=== PATIENT | male | born 1985 | race Caucasian/White ===

== ENCOUNTER → 2016-05-24 | Outpatient (CLI) | payer BC | END | disposition home or self-care (01) | LOC: C.PATHSPEC 17:47 | PROVIDERS: ATTEND Urology | DX: Z30.2 Encounter for sterilization (principal) ==

== ENCOUNTER → 2016-12-18 | Outpatient (CLI) | payer BC ==
--- NOTE | 2016-12-18 14:11 | DIAGNOSTIC IMAGING REPORT ---
TWO VIEW CHEST CLINICAL HISTORY: Dyspnea of several months duration. FINDINGS: PA and lateral chest radiographs are compared to study dated 11/04/2014. The cardiomediastinal silhouette is unremarkable. A right paratracheal density is noted. The lungs and pleural spaces are clear. There is no pneumothorax. The bony thorax appears intact. IMPRESSION: 1. No active disease in the chest. 2. A lobulated right paratracheal density likely represents the thyroid gland versus vascular structures and is likely similar to previous. CT scan could be considered for further interrogation of clinically warranted. Electronically signed by: Johnie Austin M.D. 12/18/2016 2:10 PM Dictated Date/Time: 12/18/2016 2:06 PM
--- NOTE | 2016-12-24 07:45 | PULMONARY FUNCTION TEST ---
CLINICAL DATA: The patient is a 31-year-old male with a height of 69 inches and a weight of 220 pounds, referred by WILMER Gorman, for evaluation of dyspnea. Spirometry pre and post bronchodilator, lung volumes, diffusing capacity were performed. FINDINGS: Pre-bronchodilator spirometry is within normal limits. FVC was 101% of predicted. FEV1 was 100% of predicted. [id number] was 105% of predicted. There was minimal change after inhaled bronchodilator. FVC remained stable. FEV1 improved 3% and [id number] improved 11%. Lung volumes demonstrated a reduction in expiratory reserve volume and residual volume, question secondary to the patient's weight. Diffusion capacity was normal at 97% of predicted. IMPRESSION: Normal spirometry with no significant improvement after inhaled bronchodilator. Normal diffusing capacity. Mild reduction in several lung volumes, question secondary to the patient's weight.
== END | disposition home or self-care (01) ==
LOC: C.RC 13:22
PROVIDERS: ATTEND Nurse Practitioner
DX: R06.00 Dyspnea, unspecified (principal)

== ENCOUNTER 2017-01-31 16:52 | Emergency (ER) | payer BC ==
[~2017-01-31] VITALS: Ht 175.3 cm; Wt 102.8 kg
[2017-01-31 16:54] VITALS: TEMP 37.1; Ht 175.3 cm; Wt 102.8 kg
[2017-01-31] MEDS ORDERED: SODIUM CHLORIDE 0.9% 1000ML 1,000 ML IV STA (17:12)
--- NOTE | 2017-01-31 17:36 | DIAGNOSTIC IMAGING REPORT ---
CHEST ONE VIEW PORTABLE CLINICAL HISTORY: palpitations COMPARISON STUDY: 12/18/2016 FINDINGS: The heart is at the upper limits of normal in size. There is no failure. There is no focal pulmonary consolidation. There are no pleural effusions.[ IMPRESSION: No active disease in the chest. Electronically signed by: Tobin Perez M.D. 01/31/2017 5:35 PM Dictated Date/Time: 01/31/2017 5:34 PM
[2017-01-31 17:39] LABS: BASO % 0.3 %; BASO ABS # 0.02 K/uL (0-0.2); COMPLETE YES; EOS % 1.3 %; HEMATOCRIT 40.6 % (42-52); IG% 0.6 %; LYMPH % 33.5 %; LYMPH ABS # 2.37 K/uL (1.2-3.4); MEAN CELL VOLUME 84.6 fL (80-100); MEAN CORPUSCULAR HEMOGLOBIN 30.8 pg (25-34); MEAN CORPUSCULAR HGB CONC 36.5 g/dl (32-36); MONO % 11.4 %; NEUT % 52.9 %; PLATELET COUNT 187 K/uL (130-400); WHITE BLOOD COUNT 7.08 K/uL (4.8-10.8)
[2017-01-31 17:53] LABS: BLOOD UREA NITROGEN 10 mg/dl (7-18); BUN/CREATININE RATIO 9.1 (10-20); CALCIUM 9.7 mg/dl (8.5-10.1); CARBON DIOXIDE 26 mmol/L (21-32); CHLORIDE 108 mmol/L (98-107); GLUCOSE 87 mg/dl (70-99); MAGNESIUM 2.4 mg/dl (1.8-2.4); SODIUM 139 mmol/L (136-145)
--- NOTE | 2017-01-31 18:42 | EMERGENCY ROOM VISIT NOTE ---
History First contact with patient: 16:59 Chief Complaint: CHEST PAIN Stated Complaint: HEART PALPITATIONS,CHEST TIGHTNESS,LIGHT HEADED History of Present Illness The patient is a 31 year old male who presents to the Emergency Room with complaints of heart palpitations. The patient states that for the past 4 days, he has had intermittent palpitations. He states they occur throughout the day and last for a few seconds at a time. Today, he states that he was at work and initially had no symptoms, but then developed palpitations again. He describes the feeling as a fluttering in his upper chest. He denies any associated chest pain or shortness of breath. He denies any cardiac history or history of arrhythmias. He denies any new medications. He denies any drug use. He does state that he had diarrhea a few days ago he feels he could be slightly dehydrated. Review of Systems A complete 10 point review of systems was reviewed with the patient with pertinent positives and negatives as per history of present illness. All else were negative. Social History Smoking Status: Former Smoker Alcohol Use: occasionally Marital Status: Housing Status: lives with family Occupation Status: employed Current/Historical Medications No Active Prescriptions or Reported Meds Physical Exam Vital Signs Date Time Temp Pulse Resp B/P (MAP) Pulse Ox O2 Delivery O2 Flow Rate FiO2 01/31/17 18:45 85 18 134/85 99 Room Air 01/31/17 17:25 91 01/31/17 16:54 37.1 96 18 145/77 97 Room Air Physical Exam VITALS: Vitals are noted on the nurse's note and reviewed by myself. Vital signs stable. GENERAL: This is a 31-year-old male, in no acute distress, nondiaphoretic, well- developed well-nourished. SKIN: Capillary reflex less than 2 seconds. HEENT: Normocephalic. PERRLA. EOMI. Mucous membranes moist. Neck is supple without nuchal rigidity. HEART: Regular rate and rhythm without murmurs gallops or rubs. LUNGS: Clear to auscultation bilaterally without wheezes, rales or rhonchi. No retractions or accessory muscle use. NEURO: Patient was alert and oriented to person place and time. Medical Decision & Procedures ER Provider Diagnostic Interpretation: CHEST ONE VIEW PORTABLE CLINICAL HISTORY: palpitations COMPARISON STUDY: 12/18/2016 FINDINGS: The heart is at the upper limits of normal in size. There is no failure. There is no focal pulmonary consolidation. There are no pleural effusions.[ IMPRESSION: No active disease in the chest. Laboratory Results 01/31/17 17:20 Red Blood Count 4.80, Mean Corpuscular Volume 84.6, Mean Corpuscular Hemoglobin 30.8, Mean Corpuscular Hemoglobin Concent 36.5, Mean Platelet Volume 10.0, Neutrophils (%) (Auto) 52.9, Lymphocytes (%) (Auto) 33.5, Monocytes (%) (Auto) 11.4, Eosinophils (%) (Auto) 1.3, Basophils (%) (Auto) 0.3, Neutrophils # (Auto ) 3.75, Lymphocytes # (Auto) 2.37, Monocytes # (Auto) 0.81, Eosinophils # (Auto ) 0.09, Basophils # (Auto) 0.02 01/31/17 17:20 Test 01/31/17 17:20 White Blood Count 7.08 K/uL (4.8-10.8) Red Blood Count 4.80 M/uL (4.7-6.1) Hemoglobin 14.8 g/dL (14.0-18.0) Hematocrit 40.6 % (42-52) Mean Corpuscular Volume 84.6 fL (80-100) Mean Corpuscular Hemoglobin 30.8 pg (25-34) Mean Corpuscular Hemoglobin Concent 36.5 g/dl (32-36) Platelet Count 187 K/uL (130-400) Mean Platelet Volume 10.0 fL (7.4-10.4) Neutrophils (%) (Auto) 52.9 % Lymphocytes (%) (Auto) 33.5 % Monocytes (%) (Auto) 11.4 % Eosinophils (%) (Auto) 1.3 % Basophils (%) (Auto) 0.3 % Neutrophils # (Auto) 3.75 K/uL (1.4-6.5) Lymphocytes # (Auto) 2.37 K/uL (1.2-3.4) Monocytes # (Auto) 0.81 K/uL (0.11-0.59) Eosinophils # (Auto) 0.09 K/uL (0-0.5) Basophils # (Auto) 0.02 K/uL (0-0.2) RDW Standard Deviation 38.8 fL (36.4-46.3) RDW Coefficient of Variation 12.5 % (11.5-14.5) Immature Granulocyte % (Auto) 0.6 % Immature Granulocyte # (Auto) 0.04 K/uL (0.00-0.02) Anion Gap 5.0 mmol/L (3-11) Est Creatinine Clear Calc Drug Dose 112.9 ml/min Estimated GFR () 101.7 Estimated GFR (Non- 87.7 BUN/Creatinine Ratio 9.1 (10-20) Calcium Level 9.7 mg/dl (8.5-10.1) Magnesium Level 2.4 mg/dl (1.8-2.4) Troponin I < 0.015 ng/ml (0-0.045) Thyroid Stimulating Hormone (TSH) 1.370 uIu/ml (0.300-4.500) Medications Administered Medications (Trade) Dose Ordered Sig/Tanya Route Start Time Stop Time Status Last Admin Dose Admin Sodium Chloride 1,000 ml @ 999 mls/hr Q1H1M STAT IV 01/31/17 17:12 01/31/17 18:12 DC 01/31/17 17:53 999 MLS/HR ECG Indication: palpitations Rate (beats per minute): 90 Rhythm: normal sinus Findings: no acute ischemic change, no ectopy Change: no significant change Medical Decision Differential diagnosis includes arrhythmia, thyroid abnormality, electrolyte abnormality, drug use, anemia, anxiety, dehydration, among others. The patient is a 31-year-old male who presents today complaining of intermittent palpitations for the past several days. Labs revealed no leukocytosis, anemia or concerning electrolyte abnormalities. TSH was within normal limits. EKG was unremarkable. The patient was asymptomatic at the time of my evaluation. He did not have significant symptoms throughout his stay. He was placed on the cardiac/vascular sonographer with no events noted. The patient may need further workup including Holter monitor or echocardiogram, but I do feel this can be performed as an outpatient. He was reassured and referred back to his primary care provider for further evaluation. He was encouraged to return here if he develops worsening or new/concerning symptoms. He was verbal to this treatment plan. Based on the patient's presentation and work up, I feel the patient is stable for outpatient treatment. The patient was educated to return to the emergency department for any worsening of their current condition or new/concerning symptoms. He will follow up with his PCP. Medication Reconcilliation Current Medication List: was personally reviewed by me Blood Pressure Screening Patient's blood pressure: Elevated blood pressure Blood pressure disposition: Elevated BP felt to be situational Impression Primary Impression: Palpitations Departure Information Dispostion Home / Self-Care Condition GOOD Prescriptions No Active Prescriptions or Reported Meds Referrals Agusto Carmen MD (PCP) Patient Instructions My [facility] Additional Instructions You have been treated in the Emergency Department for your palpitations. Laboratory results and Imaging Studies have ruled out any cardiac or pulmonary cause of your chest pain. Rest and stay well hydrated. You should schedule a follow-up appointment with your Primary Care Provider in 2 -3 days for further evaluation from today's Emergency Department visit. You may need more testing including a Holter monitor to find the source of your palpitations. Return to the Emergency Department if your current symptoms worsen despite treatment course outlined above, or if you develop any of the following symptoms : worsening chest pain, associated jaw/arm pain, nausea, dizziness, shortness of breath, bloody cough, or fainting.
[2017-01-31 18:45] VITALS: BP 134/85; PULSE 85; O2SAT 99
== END 2017-01-31 19:07 | disposition home or self-care (01) ==
LOC: C.EDB 16:54 → C.EDA 19:07
DX: R00.2 Palpitations (principal); R19.7 Diarrhea, unspecified; Z87.891 Personal history of nicotine dependence

== ENCOUNTER → 2017-03-14 | Outpatient (CLI) | payer BC ==
--- NOTE | 2017-03-14 16:16 | DIAGNOSTIC IMAGING REPORT ---
THYROID ULTRASONOGRAPHY CLINICAL HISTORY: Palpable thyroid nodule COMPARISON STUDY: No previous studies for comparison. FINDINGS: The right lobe of thyroid measures 18 x 51 x 14 mm. The left lobe of thyroid measures 50 x 37 x 15 mm. Both lobes are of normal echogenicity. No thyroid nodules are visualized. IMPRESSION: Normal thyroid ultrasonography. Electronically signed by: Tobin Perez M.D. 03/14/2017 4:14 PM Dictated Date/Time: 03/14/2017 4:13 PM
== END | disposition home or self-care (01) ==
LOC: C.ULTR 15:28
PROVIDERS: ATTEND Physician Assistant
DX: M54.2 Cervicalgia (principal); R22.1 Localized swelling, mass and lump, neck

== ENCOUNTER 2017-08-02 08:09 | Emergency (ER) | payer BC ==
[~2017-08-02] VITALS: Ht 175.3 cm; Wt 92.4 kg
[2017-08-02 08:13] VITALS: O2SAT 98; Ht 175.3 cm; Wt 92.4 kg
[2017-08-02] MEDS ORDERED: ONDANSETRON INJ 2 MG/ML 2 ML VIAL IV STA (08:28)
[2017-08-02] MEDS ORDERED: ACETAMINOPHEN 500 MG TAB PO STA (08:28)
[2017-08-02] MEDS ORDERED: SODIUM CHLORIDE 0.9% 1000ML 1,000 ML IV STA (08:28)
[2017-08-02] MEDS ORDERED: GI COCKTAIL PO STA (08:28)
[2017-08-02] MEDS ORDERED: FAMOTIDINE 20 MG TAB PO ONE (08:30)
[2017-08-02] MEDS ORDERED: MULT-506 PO (08:31)
[2017-08-02 08:37] LABS: BASO % 0.1 %; BASO ABS # 0.01 K/uL (0-0.2); EOS % 1.6 %; EOS ABS # 0.12 K/uL (0-0.5); HEMATOCRIT 44.7 % (42-52); HEMOGLOBIN 16.5 g/dL (14.0-18.0); IG# 0.05 K/uL (0.00-0.02); LYMPH % 30.4 %; LYMPH ABS # 2.33 K/uL (1.2-3.4); MEAN CORPUSCULAR HEMOGLOBIN 31.7 pg (25-34); MEAN CORPUSCULAR HGB CONC 36.9 g/dl (32-36); MEAN PLATELET VOLUME 9.7 fL (7.4-10.4); MONO % 9.3 %; MONO ABS # 0.71 K/uL (0.11-0.59); NEUT % 57.9 %; NEUT ABS # 4.44 K/uL (1.4-6.5); PLATELET COUNT 180 K/uL (130-400); RED CELL DISTRIBUTION WIDTH CV 12.7 % (11.5-14.5); RED CELL DISTRIBUTION WIDTH SD 40.1 fL (36.4-46.3); WHITE BLOOD COUNT 7.66 K/uL (4.8-10.8)
[2017-08-02] MEDS ORDERED: ALUMINUM/MAGNESIUM SUSP 30 ML UDC ONE (08:37)
[2017-08-02] MEDS ORDERED: LIDOCAINE HCL 2% VISC SOLN 20 ML UDC ONE (08:38)
--- NOTE | 2017-08-02 08:43 | DIAGNOSTIC IMAGING REPORT ---
CHEST ONE VIEW PORTABLE CLINICAL HISTORY: 31 years-old Male presenting with CHEST PAIN. TECHNIQUE: Portable upright AP view of the chest was obtained. COMPARISON: 01/31/2017. FINDINGS: Cardiomediastinal silhouette normal. Lungs and pleural spaces clear. Osseous structures normal. Upper abdomen normal. IMPRESSION: 1. No acute cardiopulmonary disease. Electronically signed by: Gee Bearden M.D. 08/02/2017 8:41 AM Dictated Date/Time: 08/02/2017 8:41 AM
[2017-08-02 08:48] LABS: PTT PATIENT 28.7 SECONDS (21.0-31.0)
[2017-08-02 08:56] LABS: ALBUMIN 4.4 gm/dl (3.4-5.0); ALT/SGPT 57 U/L (12-78); BLOOD UREA NITROGEN 10 mg/dl (7-18); CALCIUM 9.3 mg/dl (8.5-10.1); CARBON DIOXIDE 26 mmol/L (21-32); CREATININE 1.01 mg/dl (0.60-1.40); GLUCOSE 96 mg/dl (70-99); LIPASE 112 U/L (73-393); SODIUM 137 mmol/L (136-145)
[2017-08-02 09:01] LABS: ALKALINE PHOSPHATASE 102 U/L (45-117); AST/SGOT 25 U/L (15-37); TOTAL PROTEIN 8.3 gm/dl (6.4-8.2)
--- NOTE | 2017-08-02 09:16 | EMERGENCY ROOM VISIT NOTE ---
History Report prepared by Neilibviral: Monty Whittington Under the Supervision of: Dr. Pavel Hager M.D. First contact with patient: 08:11 Chief Complaint: CHEST PAIN Stated Complaint: CHEST PAIN NUMBNESS IN EXTREMITIES X 3 TO 4 DAYS History of Present Illness The patient is a 31 year old white male with a past medical history of previous hernia surgery who presents to the ED with a cc of intermittent chest pain beginning a few days ago. Describes pain as "burning". Pain is present most of the time. Positive lightheadedness, shortness of breath, and nausea. Pain worsens throughout the day. Patient has taken Ibuprofen for his pain, but only rest improves his pain. His pain is not significantly worsened with exertion. Negative leg swelling, vomiting, cough, fevers, or chills. Patient had flu shot this year. Urinating and defecating normally. No history of blood clots. Patient notes that his grandfather recently 2-3 days ago and that has been stressful. Source of History: patient Onset: A few days ago Position: chest Quality: burning Timing: intermittent Modifying Factors (Worsening): other (throughout day) Modifying Factors (Relieving): rest Associated Symptoms: + SOB, + nausea, No fevers, No chills, No cough, No vomiting Note: Negative: leg swelling. Positive: lightheadedness. Review of Systems See HPI for pertinent positives and negatives. A total of ten systems were reviewed and were otherwise negative. Past Medical & Surgical Medical Problems: (1) No Known Active Medical Problems (2) Non-cardiac chest pain (3) Palpitations Family History No pertinent family history stated. Social History Smoking Status: Former Smoker Alcohol Use: occasionally Marital Status: Housing Status: lives with family Occupation Status: employed Current/Historical Medications Scheduled Multivitamin (Multivitamin), 1 TAB PO DAILY Allergies Coded Allergies: No Known Allergies (Unverified , 08/02/17) Physical Exam Vital Signs Date Time Temp Pulse Resp B/P (MAP) Pulse Ox O2 Delivery O2 Flow Rate FiO2 08/02/17 09:32 36.9 92 18 126/74 99 Room Air 08/02/17 08:23 87 08/02/17 08:13 98 Room Air 08/02/17 08:13 37.4 101 18 156/100 98 Room Air Physical Exam GENERAL: Awake, alert, well-appearing, NAD. Wearing glasses. HENT: Normocephalic, atraumatic. EYES: Normal conjunctiva. Sclera non-icteric. NECK: Supple. No nuchal rigidity. FROM. RESPIRATORY: CTAB, no rhonchi, wheezing, crackles CARDIAC: Tachycardic rate with a regular rhythm, no MRG ABDOMEN: Soft, NTND, BS+ MSK: No chest wall TTP, no LE edema NEURO: GCS 15, CN 2-12 intact, moves all 4s on command SKIN: No rash or jaundice noted. Medical Decision & Procedures ER Provider Diagnostic Interpretation: Radiology results as stated below per my review and radiologist interpretation: CHEST ONE VIEW PORTABLE FINDINGS: Cardiomediastinal silhouette normal. Lungs and pleural spaces clear. Osseous structures normal. Upper abdomen normal. IMPRESSION: 1. No acute cardiopulmonary disease. Electronically signed by: Gee Bearden M.D. 08/02/2017 8:41 AM Laboratory Results 08/02/17 08:20 Red Blood Count 5.20, Mean Corpuscular Volume 86.0, Mean Corpuscular Hemoglobin 31.7, Mean Corpuscular Hemoglobin Concent 36.9, Mean Platelet Volume 9.7, Neutrophils (%) (Auto) 57.9, Lymphocytes (%) (Auto) 30.4, Monocytes (%) (Auto) 9.3, Eosinophils (%) (Auto) 1.6, Basophils (%) (Auto) 0.1, Neutrophils # (Auto) 4.44, Lymphocytes # (Auto) 2.33, Monocytes # (Auto) 0.71, Eosinophils # (Auto) 0.12, Basophils # (Auto) 0.01 08/02/17 08:20 Test 08/02/17 08:20 White Blood Count 7.66 K/uL (4.8-10.8) Red Blood Count 5.20 M/uL (4.7-6.1) Hemoglobin 16.5 g/dL (14.0-18.0) Hematocrit 44.7 % (42-52) Mean Corpuscular Volume 86.0 fL (80-100) Mean Corpuscular Hemoglobin 31.7 pg (25-34) Mean Corpuscular Hemoglobin Concent 36.9 g/dl (32-36) Platelet Count 180 K/uL (130-400) Mean Platelet Volume 9.7 fL (7.4-10.4) Neutrophils (%) (Auto) 57.9 % Lymphocytes (%) (Auto) 30.4 % Monocytes (%) (Auto) 9.3 % Eosinophils (%) (Auto) 1.6 % Basophils (%) (Auto) 0.1 % Neutrophils # (Auto) 4.44 K/uL (1.4-6.5) Lymphocytes # (Auto) 2.33 K/uL (1.2-3.4) Monocytes # (Auto) 0.71 K/uL (0.11-0.59) Eosinophils # (Auto) 0.12 K/uL (0-0.5) Basophils # (Auto) 0.01 K/uL (0-0.2) RDW Standard Deviation 40.1 fL (36.4-46.3) RDW Coefficient of Variation 12.7 % (11.5-14.5) Immature Granulocyte % (Auto) 0.7 % Immature Granulocyte # (Auto) 0.05 K/uL (0.00-0.02) Prothrombin Time 10.6 SECONDS (9.0-12.0) Prothromb Time International Ratio 1.0 (0.9-1.1) Activated Partial Thromboplast Time 28.7 SECONDS (21.0-31.0) Partial Thromboplastin Ratio 1.1 Anion Gap 7.0 mmol/L (3-11) Est Creatinine Clear Calc Drug Dose 116.8 ml/min Estimated GFR () 112.7 Estimated GFR (Non- 97.3 BUN/Creatinine Ratio 10.3 (10-20) Calcium Level 9.3 mg/dl (8.5-10.1) Total Bilirubin 0.8 mg/dl (0.2-1) Direct Bilirubin 0.2 mg/dl (0-0.2) Aspartate Amino Transf (AST/SGOT) 25 U/L (15-37) Alanine Aminotransferase (ALT/SGPT) 57 U/L (12-78) Alkaline Phosphatase 102 U/L (45-117) Troponin I < 0.015 ng/ml (0-0.045) Pro-B-Type Natriuretic Peptide < 5 pg/ml (0-450) Total Protein 8.3 gm/dl (6.4-8.2) Albumin 4.4 gm/dl (3.4-5.0) Lipase 112 U/L (73-393) Laboratory results reviewed by me Medications Administered Medications (Trade) Dose Ordered Sig/Tanya Route Start Time Stop Time Status Last Admin Dose Admin Sodium Chloride 1,000 ml @ 999 mls/hr Q1H1M STAT IV 08/02/17 08:28 08/02/17 09:28 DC 08/02/17 08:33 999 MLS/HR Acetaminophen (Tylenol Tab) 1,000 mg NOW STAT PO 08/02/17 08:28 08/02/17 08:31 DC 08/02/17 08:41 1,000 MG Miscellaneous Medication (Gi Cocktail) 24 ml ONE STAT PO 08/02/17 08:28 08/02/17 08:31 DC 08/02/17 08:42 24 ML Famotidine (Pepcid Tab) 20 mg NOW ONCE PO 08/02/17 08:30 08/02/17 08:31 DC 08/02/17 08:41 20 MG Ondansetron HCl (Zofran Inj) 4 mg NOW STAT IV 08/02/17 08:28 08/02/17 08:31 DC 08/02/17 08:41 4 MG Al Hydroxide/Mg Hydroxide (Maalox Susp) 30 ml STK-MED ONCE .ROUTE 08/02/17 08:37 08/02/17 08:38 DC 08/02/17 08:41 30 ML Lidocaine HCl (Viscous Lidocaine 2% Soln) 20 ml STK-MED ONCE .ROUTE 08/02/17 08:38 08/02/17 08:39 DC 08/02/17 08:41 20 ML ECG Per My Interpretation Indication: chest pain Rate (beats per minute): 109 Rhythm: sinus tachycardia Findings: other (Normal intervals. Normal axis. No STS changes or TWI. No evidence of right heart strain. ) ED Course 0817: The patient was evaluated in room A2. A complete history and physical exam was performed. 0934: I reevaluated the patient. Discussed results and discharge instructions: he verbalized understanding and agreement. The patient is ready for discharge. Medical Decision The patient is a 31 year old white male with a past medical history of previous hernia surgery who presents to the ED with a cc of intermittent chest pain beginning a few days ago. Differential diagnosis: Etiologies such as cardiac ischemia, aortic dissection, pulmonary embolism, pneumonia, pneumothorax, musculoskeletal, infections, pericarditis, myocarditis , esophageal rupture, gastrointestinal, as well as others were entertained. Prior records were reviewed. The patient was seen last year for some chest discomfort. Patient was seen and evaluated the bedside. Patient does complain of some intermittent chest pain. Patient states that it is left-sided and burning in nature. Patient states constant. Patient denies any exertional symptoms. Patient does not have any family history of early cardiac disease. Patient does use alcohol occasionally but denies any tobacco or substance abuse. Patient denies any infectious symptoms. Of note the patient's grandfather did pass away 2-3 days ago. Patient states that also thinking that his chest pain may make it worse as well. Patient does not have any prior history of psychiatric disorders or anxiety or depression. Patient is not taking anything with the exception of ibuprofen which has not helped his discomfort. Patient has complained of nausea but without vomiting. Patient did have blood work completed, EKG, troponin, chest x-ray. Patient's blood work fairly unremarkable. Patient's EKG did show sinus tach but no ischemia and the patient does not show any evidence of right heart strain. Patient would be PE RC of 1 given the tachycardia however this resolved with pain control. Believe PE less likely. ACS also less likely given the patient has a heart score less than 4. Upon reassessment patient was feeling improved. Patient's chest x-ray was clear. This may be possible gastritis given the burning nature of his chest discomfort. He has also had a recent stress of his grandfather recently passing away. Patient was deemed suitable for outpatient follow-up treatment at this time. Patient was given strict follow-up, discharge , and return precautions. All questions were answered. Patient was deemed suitable for outpatient follow-up at this time. Patient agreed with the plan of care and was safely discharged home. Medication Reconcilliation Current Medication List: was personally reviewed by me Blood Pressure Screening Patient's blood pressure: Normal blood pressure Blood pressure disposition: Did not require urgent referral Impression Primary Impression: Chest pain Scribe Attestation The scribe's documentation has been prepared under my direction and personally reviewed by me in its entirety. I confirm that the note above accurately reflects all work, treatment, procedures, and medical decision making performed by me. Departure Information Dispostion Home / Self-Care Referrals Agusto Carmen MD (PCP) Patient Instructions Chest Pain - [facility], ED Gastritis, My [facility] Additional Instructions Please return to the emergency department if you have worsening or recurrent symptoms not amenable to at-home treatment. Please call for a follow-up appointment with her primary care physician. Please take your medications as prescribed. If you have other concerns and/or complaints please feel free to also call your primary care physician's office or return the ED for further evaluation, management, and treatment. You may take 600 mg Ibuprofen every 6 hours as needed for pain with food for no more than 2 consecutive days. You may take tylenol 1000 mg every 6 hours as needed for pain. You may take motrin and tylenol separately or at the same time. Please consider a Pepcid or Zantac to help with any GI upset. Consider smaller meals and avoiding things like spicy or citrus foods. You have been examined and treated today on an emergency basis only. This is not a substitute for, or an effort to provide, complete comprehensive medical care. It is impossible to recognize and treat all injuries or illnesses in a single emergency department visit. It is therefore important that you follow up closely with [facility], your PCP, and/or your specialist(s). Call as soon as possible for an appointment. Thank you for your time and consideration. I look forward to speaking with you again soon. Please don't hesitate to call us if you have any questions. Problem Qualifiers Primary Impression: Chest pain Chest pain type: unspecified Qualified Codes: R07.9 - Chest pain, unspecified
[2017-08-02 09:32] VITALS: BP 126/74; PULSE 92; TEMP 36.9; O2SAT 99
== END 2017-08-02 09:52 | disposition home or self-care (01) ==
LOC: C.EDA 08:12
DX: R07.9 Chest pain, unspecified (principal); Z87.891 Personal history of nicotine dependence

== ENCOUNTER 2017-09-08 11:08 | Emergency (ER) | payer BC ==
[~2017-09-08] VITALS: Ht 177.8 cm; Wt 100.6 kg
[~2017-09-08 11:08] MED LIST: MULT-506 PO
[2017-09-08 11:13] VITALS: TEMP 37.2; Ht 177.8 cm; Wt 100.6 kg
[2017-09-08] MEDS ORDERED: CEPHALEXIN MONOHYDRATE 250 MG CAP PO STA (11:41)
[2017-09-08] MEDS ORDERED: SULFAMETHOXAZOLE/TRIMETHOPRIM DS 800/160MG TAB PO STA (11:41)
[2017-09-08] MEDS ORDERED: SULF800T23 PO (11:43)
[2017-09-08] MEDS ORDERED: CEPH500C PO (11:43)
--- NOTE | 2017-09-08 11:44 | EMERGENCY ROOM VISIT NOTE ---
ED Visit Note First contact with patient: 11:28 CHIEF COMPLAINT: Infection of the skin of the left breast HISTORY OF PRESENT ILLNESS: This 31-year-old male patient presents to the emergency department, ambulatory, less than 24 hours after they noticed a hard, red, tender area just superior to the left nipple. It is slowly getting larger , more painful and tender. No fever, chills, or loss of appetite. There has been no drainage from the area. There was no injury to the area preceding the infection. There have been no open wounds in that area. They rate the pain as throbbing and 5/10. Tetanus shot is up to date. They have tried nothing. The patient is not diabetic. The patient has no history of subcutaneous abscesses. The patient denies fever or systemic symptoms. REVIEW OF SYSTEMS: A 10 system review of systems was performed with positives and pertinent negatives listed in the history of present illness. All other systems were reviewed and are negative. ALLERGIES: None MEDICATIONS: None PMH: None SOCIAL HISTORY: The patient lives locally with family. He denies drug, alcohol , tobacco use. PHYSICAL EXAM: Vital Signs: Reviewed Nurse's notes, vital signs stable. GENERAL : This is a 31-year-old male, no acute distress, non toxic in appearance, well- developed well-nourished. SKIN: There is an erythematous indurated area just superior to the left nipple which measures about .25 cm in diameter. It is fluctuant but there is no pointing or drainage. There is a zone of inflammation around it but no lymphangitis. Capillary refill less than 2 seconds. MUSCULOSKELETAL: There is no limitation of the range of motion of the upper extremities. EMERGENCY DEPARTMENT COURSE: I examined the patient. I discussed options with the patient including I&D versus antibiotic treatment initially. The patient would like to start on antibiotics with close follow-up by his PCP this week. I do feel that this is reasonable given the small size of the lesion and no significant redness or drainage at this time. The patient was educated on using warm, moist compresses and proper use of antibiotics. Discharge instructions reviewed. The patient was discharged home in stable condition. I attest that I have personally reviewed the patient's current medication list. Patient was found to have normal blood pressure on screening and does not require follow-up. Differential diagnosis includes cellulitis, abscess, DVT, superficial thrombus, septic joint, necrotizing fasciitis, burn, dermatitis, impetigo, erythema multiforme, bite, osteomyelitis, Hair-Agustín Syndrome, gangrene, malignancy , and others DIAGNOSIS: Abscess of the skin of the left breast The chart was completed utilizing lettrs Speech voice recognition software. Grammatical errors, random word insertions, pronoun errors, and incomplete sentences are an occasional consequence of this system due to software limitations, ambient noise, and hardware issues. Any formal questions or concerns about the content, text, or information contained within the body of this dictation should be directly addressed to the provider for clarification. Problem List Medical Problems: (1) Non-cardiac chest pain Status: Resolved (2) Palpitations Status: Resolved Current/Historical Medications Scheduled Cephalexin Monohydrate (Keflex), 500 MG PO QID Multivitamin (Multivitamin), 1 TAB PO DAILY Sulfa/Trimethoprim (Bactrim Ds 800MG/160MG), 1 TAB PO BID Allergies Coded Allergies: No Known Allergies (Unverified , 09/08/17) Vital Signs Date Time Temp Pulse Resp B/P (MAP) Pulse Ox O2 Delivery O2 Flow Rate FiO2 09/08/17 11:52 99 16 142/91 97 Room Air 09/08/17 11:13 37.2 99 18 144/85 97 Room Air Medications Administered Medications (Trade) Dose Ordered Sig/Tanya Route Start Time Stop Time Status Last Admin Dose Admin Cephalexin Monohydrate (Keflex Cap) 500 mg NOW STAT PO 09/08/17 11:41 09/08/17 11:42 DC 09/08/17 11:51 500 MG Trimethoprim/ Sulfamethoxazole (Septra Ds 800/ 160MG Tab) 1 tab NOW STAT PO 09/08/17 11:41 09/08/17 11:42 DC 09/08/17 11:50 1 TAB Departure Information Impression Primary Impression: Abscess of left breast Dispostion Home / Self-Care Condition GOOD Prescriptions Sulfa/Trimethoprim (Bactrim Ds 800MG/160MG) Tab 1 TAB PO BID for 10 Days, #20 TAB Prov: Ximena García PA-C 09/08/17 Cephalexin Monohydrate (Keflex) 500 Mg Cap 500 MG PO QID for 10 Days, #40 CAP Prov: Ximena García PA-C 09/08/17 Referrals Agusto Carmen MD (PCP) Forms WORK / SCHOOL INSTRUCTIONS, HOME CARE DOCUMENTATION FORM, IMPORTANT VISIT INFORMATION Patient Instructions ED Infec Skin Cellulitis, My [facility] Additional Instructions He was seen in the emergency department today for a small abscess with associated skin cellulitis just above the left nipple on the breasts. As discussed, this abscess is very small, and may improve with antibiotics. It is imperative that you follow-up with your PCP in 2-3 days for reevaluation and possible drainage if necessary. Cephalexin(Keflex) 500mg: Take one pill four times daily for 10 days for your skin infection. All antibiotics can cause diarrhea. If this occurs and you feel worse or it does not resolve in 1-2 days follow up with your doctor or return to the Emergency Department as this could be signs of serious underlying problems. Any medication can cause an allergic reaction, stop the pills immediately and return to the ER for rash, hives, breathing difficulties, or swelling. Trimethoprim-Sulfamethoxazole(Bactrim DS): Take one pill twice daily for 10 days for your skin infection. All antibiotics can cause diarrhea. If this occurs and you feel worse or it does not resolve in 1-2 days follow up with your doctor or return to the Emergency Department as this could be signs of serious underlying problems. Any medication can cause an allergic reaction, stop the pills immediately and return to the ER for rash, hives, breathing difficulties, or swelling. Ibuprofen(Motrin, Advil) may be used for fever or pain. Use 600mg every six hours as needed. Take with food. Avoid using more than 2400mg in a 24 hour period. Do not use 2400mg per day for more than three consecutive days without physician direction. Prolonged inappropriate use can lead to stomach upset or ulcers. (AND/OR) Acetaminophen(Tylenol) may be used for fever or pain. Use 1000mg every six hours as needed. Avoid using more than 3000mg in a 24 hour period. Use warm, moist compresses and gentle massage over the lesion several times per day until the infection improves. Follow-up with your PCP in 2-3 days for reevaluation. Return immediately to the emergency department for any fevers, chills, body aches, nausea, vomiting, systemic symptoms, or significantly worsening or spreading redness or drainage.
[2017-09-08 11:52] VITALS: BP 142/91; PULSE 99; O2SAT 97
== END 2017-09-08 11:56 | disposition home or self-care (01) ==
LOC: C.EDB 11:11 → C.EDD 11:56
DX: N61.1 Abscess of the breast and nipple (principal)